=== PATIENT | female | born 1960 | race Caucasian/White ===

== ENCOUNTER 2017-01-20 13:33 | Emergency (ER) | payer MEDICARE, OTHER ==
[2017-01-20 13:53] VITALS: BP 140/53
[2017-01-20] MEDS ORDERED: Ibuprofen TAB* 600 MG PO ONE (14:19)
--- NOTE | 2017-01-20 14:19 | UC ---
Lower Extremity/Ankle HPI - HPI Summary HPI Summary: patient has had a few days of heel pain that is radiating up to the knee - History of Current Complaint Chief Complaint: UCLowerExtremity Stated Complaint: RIGHT FOOT PAIN Time Seen by Provider: 01/20/17 14:11 Hx Obtained From: Patient Hx Last Menstrual Period: 02/12/14 ?: No Onset/Duration: Sudden Onset, Lasting Days Severity Initially: Moderate Severity Currently: Severe Aggravating Factor(s): Standing, Ambulation Alleviating Factor(s): Rest Able to Bear Weight: Yes - Allergies/Home Medications Allergies/Adverse Reactions: Allergies Allergy/AdvReac Type Severity Reaction Status Date / Time No Known Allergies Allergy Verified 01/20/17 13:53 Home Medications: Home Medications Citalopram TAB* [CeleXA TAB*] 20 mg PO DAILY 01/20/17 [History Confirmed ] PMH/Surg Hx/FS Hx/Imm Hx Previously Healthy: Yes Other History Of: Negative For: HIV, Hepatitis B, Hepatitis C - Surgical History Surgical History: Yes Surgery Procedure, Year, and Place: APPENDECTOMY - Family History Known Family History: Positive: None Negative: Cardiac Disease, Hypertension, Diabetes - Social History Alcohol Use: None Substance Use Type: None Smoking Status (MU): Former Smoker Type: Cigarettes When Did the Patient Quit Smoking/Using Tobacco: 3 years Household Exposure Type: Cigarettes - Immunization History Most Recent Influenza Vaccination: 02/2013 Review of Systems Constitutional: Negative Skin: Negative Eyes: Negative ENT: Negative Respiratory: Negative Cardiovascular: Negative Gastrointestinal: Negative Genitourinary: Negative Motor: Negative Neurovascular: Negative Musculoskeletal: Arthralgia, Edema, Myalgia Neurological: Negative Psychological: Negative All Other Systems Reviewed And Are Negative: Yes Physical Exam Triage Information Reviewed: Yes Appearance: Well-Appearing, Well-Nourished, Pain Distress Vital Signs: Initial Vital Signs Temp 98.0 F 01/20/17 13:48 Pulse 98 01/20/17 13:48 Resp 14 01/20/17 13:48 BP 140/53 01/20/17 13:48 Pulse Ox 98 01/20/17 13:48 Vital Signs Reviewed: Yes Eyes: Positive: Conjunctiva Clear ENT Exam: Normal ENT: Positive: Hearing grossly normal, Pharynx normal, TMs normal Dental Exam: Normal Neck exam: Normal Neck: Positive: Supple, Nontender, No Lymphadenopathy Respiratory Exam: Normal Respiratory: Positive: Chest non-tender, Lungs clear, Normal breath sounds Cardiovascular Exam: Normal Cardiovascular: Positive: RRR, No Murmur, Pulses Normal Abdominal Exam: Normal Abdomen Description: Positive: Nontender, No Organomegaly, Soft Bowel Sounds: Positive: Present Musculoskeletal: Positive: Strength Limited @ - when bearing weight, ROM Limited @ - in extreme dorsi flexeion, Edema @ - small pocket of edema on the posterolateral side of the lateral maleolus Neurological Exam: Normal Psychological Exam: Normal Lower Extremity Course/Dx - Course Course Of Treatment: hx obtained, exam performed ,meds reviewed, xray obtained, Ibuprofen given - Differential Dx/Diagnosis Differential Diagnosis/HQI/PQRI: Contusion, Dislocation, Fracture (Closed), Sprain, Strain, Other - heel spur Provider Diagnoses: heel spurs Discharge - Discharge Plan Condition: Stable Disposition: HOME Patient Education Materials: Heel Spur (ED) Referrals: Jolly Johnson PA [Primary Care Provider] - Israel Esteves DPM [Doctor of Podiatric Medicine] - Additional Instructions: 1. I recommend getting some orthotic insoles. 2. Follow up with the cdl program coordinator for proper treatement of the spurs.
--- NOTE | 2017-01-20 14:58 | RAD ---
HISTORY: Heel pain COMPARISONS: February 16, 2014 VIEWS: 4, lateral, axial, and bilateral oblique views of the calcaneus FINDINGS: BONE DENSITY: Normal. BONES: There is no displaced fracture. There are plantar calcaneal enthesophytes. JOINTS: There is no arthropathy. ALIGNMENT: There is no dislocation. SOFT TISSUES: Unremarkable. OTHER FINDINGS: None. IMPRESSION: HEEL SPURS. NO ACUTE OSSEOUS INJURY. IF SYMPTOMS PERSIST, RECOMMEND REPEAT IMAGING.
== END 2017-01-20 15:08 | disposition home or self-care (01) ==
LOC: UCCORT 13:33
DX: M77.51 Other enthesopathy of right foot and ankle (principal)
CPT/HCPCS: 99212; A9270-GY; G0463

== ENCOUNTER 2017-08-31 13:44 | Emergency (ER) | payer MEDICARE, OTHER ==
[2017-08-31 14:52] VITALS: BP 136/73
--- NOTE | 2017-08-31 15:02 | UC ---
Lower Extremity/Ankle HPI - HPI Summary HPI Summary: pt is c/o pain behind her L knee into the back of her thigh and into her calf. she notes some swelling to the back of that knee for a a period of time that she has assumed to be a "Bakers cyst"; however, the rest of the swelling is new along with the pain. the new complaints began after a prolonged walk about 1 week ago. no hx injury. denies hx of immobilization and hx dvt. denies cp/sob. does have hx of remote twist and fall causing pain in that knee but both resolved prior to this. - History of Current Complaint Chief Complaint: UCLowerExtremity Stated Complaint: LEFT KNEE Time Seen by Provider: 08/31/17 14:51 Hx Obtained From: Patient Hx Last Menstrual Period: 02/12/14 ?: No Onset/Duration: Gradual Onset Pain Intensity: 7 Aggravating Factor(s): Nothing Alleviating Factor(s): Nothing Able to Bear Weight: Yes - Risk Factors DVT Risk Factors: Smoking Septic Arthritis Risk Factor: Negative - Allergies/Home Medications Allergies/Adverse Reactions: Allergies Allergy/AdvReac Type Severity Reaction Status Date / Time No Known Allergies Allergy Verified 08/31/17 14:52 Home Medications: Home Medications Acetaminophen [Tylenol Extra Strength] 500 mg PO Q6H PRN 08/31/17 [History Confirmed 08/31/17] PMH/Surg Hx/FS Hx/Imm Hx - Additional Past Medical History Additional PMH: fibromyalgia Cardiovascular History: Hypertension Psychological History: Depression Other History Of: Negative For: HIV, Hepatitis B, Hepatitis C - Surgical History Surgical History: Yes Surgery Procedure, Year, and Place: APPENDECTOMY - Family History Known Family History: Positive: None Negative: Cardiac Disease, Hypertension, Diabetes - Social History Lives: With Family Alcohol Use: Rare Substance Use Type: None Smoking Status (MU): Current Every Day Smoker Type: Cigarettes Amount Used/How Often: 2-3 CIGS PER DAY Length of Time of Smoking/Using Tobacco: 6 MOS When Did the Patient Quit Smoking/Using Tobacco: 3 years Household Exposure Type: Cigarettes - Immunization History Most Recent Influenza Vaccination: 02/2013 Vaccination Up to Date: Yes Review of Systems Constitutional: Negative Skin: Negative Eyes: Negative ENT: Negative Respiratory: Negative Cardiovascular: Negative Gastrointestinal: Negative Genitourinary: Negative Motor: Negative Neurovascular: Negative Musculoskeletal: Calf Tenderness - LLE, Edema - LLE Neurological: Negative Psychological: Negative Is Patient Immunocompromised?: No All Other Systems Reviewed And Are Negative: Yes Physical Exam Triage Information Reviewed: Yes Appearance: Well-Appearing Vital Signs: Initial Vital Signs Temp 98.6 F 08/31/17 14:42 Pulse 87 08/31/17 14:42 Resp 16 08/31/17 14:42 BP 136/73 08/31/17 14:42 Pulse Ox 97 08/31/17 14:42 Vital Signs Reviewed: Yes Eyes: Positive: Conjunctiva Clear ENT: Positive: Normal ENT inspection Neck: Positive: Supple, Nontender, No Lymphadenopathy Respiratory: Positive: Lungs clear, Normal breath sounds Cardiovascular: Positive: RRR, No Murmur Abdomen Description: Positive: Nontender, No Organomegaly, Soft Bowel Sounds: Positive: Present Musculoskeletal: Positive: Other: - LLE: diffuse mild swelling compared to R. + homans sign. there is swelling over the popliteal fossa as well. LLE has full s/ v/m function. Neurological: Positive: Alert Psychological: Positive: Age Appropriate Behavior Skin Exam: Normal Lower Extremity Course/Dx - Course Course Of Treatment: no concern for fx or infection. swelling over the popliteal fossa is c/w a Bakers cyst. no hx to suggest a ruptured Bakers cyst. the calf pain and leg swelling is concerning for DVT. pt agrees to Er transfer to r/o DVT. she will drive herself to [facility] ER. Report given to Memrise isak at [facility] ER. advised possible DVT. - Differential Dx/Diagnosis Provider Diagnoses: acute swelling/pain left leg. Bakers cyst. R/O DVT Discharge - Sign-Out/Discharge Documenting (check all that apply): Discharge - Discharge Plan Condition: Stable Disposition: [facility] Referrals: Jolly Johnson PA [Primary Care Provider] - Additional Instructions: GO DIRECTLY TO THE ER DISCUSSED. - Billing Disposition and Condition Condition: STABLE Disposition: [facility]
== END 2017-08-31 15:15 | disposition short-term general hospital (02) ==
LOC: UCCORT 13:44
DX: M25.562 Pain in left knee (principal); M71.22 Synovial cyst of popliteal space [Baker], left knee; M79.89 Other specified soft tissue disorders
CPT/HCPCS: 99211; G0463

== ENCOUNTER 2018-04-04 11:08 | Emergency (ER) | payer MEDICAID, OTHER ==
--- NOTE | 2018-04-04 12:04 | UC ---
Lower Extremity/Ankle HPI - HPI Summary HPI Summary: 57 yo female presents with right ankle pain. She tells me that yesterday she hopped out of bed and landed with her ankle slightly inverted. Since that time she has had pain in the lateral ankle. She is ambulatory without assistance. She has a hx of fibromyalgia and says she gets long lasting pains. Denies numbness or tingling. - History of Current Complaint Stated Complaint: RIGHT ANKLE COMPLAINT Time Seen by Provider: 04/04/18 12:03 Hx Obtained From: Patient Hx Last Menstrual Period: 02/12/14 Onset/Duration: Sudden Onset Severity Initially: Moderate Severity Currently: Moderate Pain Intensity: 5 Pain Scale Used: 0-10 Numeric Aggravating Factor(s): Standing, Ambulation Alleviating Factor(s): Rest Able to Bear Weight: Yes - Allergies/Home Medications Allergies/Adverse Reactions: Allergies Allergy/AdvReac Type Severity Reaction Status Date / Time No Known Allergies Allergy Verified 04/04/18 12:01 PMH/Surg Hx/FS Hx/Imm Hx Cardiovascular History: Hypertension Psychological History: Anxiety, Depression Other History Of: Negative For: HIV, Hepatitis B, Hepatitis C - Surgical History Surgical History: Yes Surgery Procedure, Year, and Place: APPENDECTOMY - Family History Known Family History: Positive: None Negative: Cardiac Disease, Hypertension, Diabetes - Social History Occupation: Employed Full-time Lives: With Family Alcohol Use: Rare Substance Use Type: None Smoking Status (MU): Current Every Day Smoker Type: Cigarettes Amount Used/How Often: 2-3 CIGS PER DAY Length of Time of Smoking/Using Tobacco: 6 MOS When Did the Patient Quit Smoking/Using Tobacco: 3 years Household Exposure Type: Cigarettes - Immunization History Most Recent Influenza Vaccination: 02/2013 Vaccination Up to Date: Yes Review of Systems All Other Systems Reviewed And Are Negative: Yes Constitutional: Positive: Negative Skin: Positive: Negative Neurovascular: Positive: Negative Musculoskeletal: Positive: Other: - Right ankle pain Neurological: Positive: Negative Psychological: Positive: Negative Physical Exam - Summary Physical Exam Summary: GENERAL: NAD. WDWN. No pain distress. SKIN: No rashes, sores, lesions, or open wounds. CHEST: No accessory muscle use. Breathing comfortably and in no distress. CV: Pulses intact PT and DP. Cap refill <2seconds MSK: RIGHT ANKLE: Mild TTP over ATFL. FROM. Strength 5/5. No edema or obvious bony deformities. Negative talar tilt. No increased laxity. NEURO: Alert. Sensations intact and symmetric B/L LEs PSYCH: Age appropriate behavior. Triage Information Reviewed: Yes Vital Signs: Vital Signs: Temp Pulse Resp BP Pulse Ox 98.4 F 79 16 149/60 98 04/04/18 12:02 04/04/18 12:02 04/04/18 12:02 04/04/18 12:02 04/04/18 12:02 Vital Signs Reviewed: Yes Lower Extremity Course/Dx - Course Course Of Treatment: XR: IMPRESSION: NO ACUTE OSSEOUS INJURY. IF SYMPTOMS PERSIST, RECOMMEND REPEAT IMAGING. Suspect ankle sprain. Advised to RICE and will try her with gel ankle splint. F/u with Orthopedics if symptoms persist. - Differential Dx/Diagnosis Provider Diagnoses: Right ankle sprain Discharge - Sign-Out/Discharge Documenting (check all that apply): Patient Departure All imaging exams completed and their final reports reviewed: Yes - Discharge Plan Condition: Stable Disposition: HOME Patient Education Materials: Ankle Sprain (ED) Referrals: Jolly Johnson PA [Primary Care Provider] - Andres Barrett MD [Medical Doctor] - If Needed Additional Instructions: If you develop a fever, shortness of breath, chest pain, new or worsening symptoms - please call your PCP or go to the ED. Your blood pressure was high at todays visit. Please see your primary provider within 4 weeks for recheck and re-evaluation. 1) Rest, Ice, and elevate your ankle as much as possible 2) Use the gel splint for added support and protection 3) If your symptoms worsen or persist - please call Orthopedics at the number below to schedule a follow up appointment - Billing Disposition and Condition Condition: STABLE Disposition: Home - Attestation Statements Provider Attestation: I was available for consult. This patient was seen by the AJAY. The patient was not presented to, seen by, or examined by me. -Kathy
[2018-04-04 12:11] VITALS: BP 149/60
--- NOTE | 2018-04-05 12:12 | UC ---
- Progress Note Progress Note: final read for ankle xray is negative for fracture, no further action required Discharge - Sign-Out/Discharge Documenting (check all that apply): Post-Discharge Follow Up All imaging exams completed and their final reports reviewed: Yes - Discharge Plan Condition: Stable Disposition: HOME Patient Education Materials: Ankle Sprain (ED) Referrals: Andres Barrett MD [Medical Doctor] - If Needed Jolly Johnson PA [Primary Care Provider] - Additional Instructions: If you develop a fever, shortness of breath, chest pain, new or worsening symptoms - please call your PCP or go to the ED. Your blood pressure was high at todays visit. Please see your primary provider within 4 weeks for recheck and re-evaluation. 1) Rest, Ice, and elevate your ankle as much as possible 2) Use the gel splint for added support and protection 3) If your symptoms worsen or persist - please call Orthopedics at the number below to schedule a follow up appointment - Billing Disposition and Condition Condition: STABLE Disposition: Home
== END 2018-04-04 13:09 | disposition home or self-care (01) ==
LOC: UCCORT 11:08
DX: S93.401A Sprain of unspecified ligament of right ankle, initial encounter (principal); I10 Essential (primary) hypertension; F17.210 Nicotine dependence, cigarettes, uncomplicated; M79.7 Fibromyalgia; W06.XXXA Fall from bed, initial encounter; Y92.9 Unspecified place or not applicable
CPT/HCPCS: 99212; G0463

== ENCOUNTER 2018-10-30 11:00 | Emergency (ER) | payer MEDICAID, OTHER ==
[2018-10-30 11:31] VITALS: BP 145/63
--- NOTE | 2018-10-30 13:07 | UC ---
Hand/Wrist HPI - HPI Summary HPI Summary: 58 y/o female presents to the urgent care c/o Pt fell on right wrist 3 days ago. Pain is along lateral right wrist and shoots up to elbow. She is able to flex wrist but it is very painful to do so. She beleives the wrist is fractured. Pt has been taking ibuprofen, it helps for a little bit. Skin intact, no bruising noted, a little bit of swelling at the wrist. - History Of Current Complaint Chief Complaint: UCUpperExtremity Stated Complaint: RIGHT WRIST INJURY Time Seen by Provider: 10/30/18 12:51 Hx Obtained From: Patient Hx Last Menstrual Period: 02/12/14 Pain Intensity: 5 - Allergies/Home Medications Allergies/Adverse Reactions: Allergies Allergy/AdvReac Type Severity Reaction Status Date / Time No Known Allergies Allergy Verified 10/30/18 11:31 PMH/Surg Hx/FS Hx/Imm Hx Other History Of: Negative For: HIV, Hepatitis B, Hepatitis C - Surgical History Surgical History: Yes Surgery Procedure, Year, and Place: APPENDECTOMY - Family History Known Family History: Positive: None Negative: Cardiac Disease, Hypertension, Diabetes - Social History Alcohol Use: Rare Substance Use Type: None Smoking Status (MU): Former Smoker Type: Cigarettes Amount Used/How Often: 2-3 CIGS PER DAY Length of Time of Smoking/Using Tobacco: 6 MOS When Did the Patient Quit Smoking/Using Tobacco: 5 days Household Exposure Type: Cigarettes - Immunization History Most Recent Influenza Vaccination: 02/2013 Vaccination Up to Date: Yes Physical Exam Vital Signs: Initial Vital Signs Temp 98.5 F 10/30/18 11:24 Pulse 80 10/30/18 11:24 Resp 18 10/30/18 11:24 BP 145/63 10/30/18 11:24 Pulse Ox 100 10/30/18 11:24 Hand/Wrist Course/Dx - Differential Dx/Diagnosis Differential Diagnosis/HQI/PQRI: Contusion, Fracture, Sprain, Strain, Tendonitis Provider Diagnosis: Right wrist pain, Right wrist sprain, Uncontrolled hypertension Discharge - Sign-Out/Discharge Documenting (check all that apply): Patient Departure - D/c home All imaging exams completed and their final reports reviewed: Yes - Discharge Plan Condition: Stable Disposition: HOME Patient Education Materials: Wrist Sprain (ED) Referrals: Johnson,J Zaire, PA [Primary Care Provider] - 1 Week Marson,Andres, MD [Medical Doctor] - 1 Week Additional Instructions: 1-Please take Ibuprofen PO q6-8hrs prn after meals as directed to alleviate pain and swelling. 2-Please apply ice, keep your wrist immobilized with the splint. Avoid heavy lifting or strenuous exercise 3- Please f/u with Orthopedic Dr Barrett or your PCP in 1 week is not improvement of symptoms for further evaluation and treatment. 4- Your BP is elevated today. please decrease salt in your diet, monitor BP and if it continues to be elevated please f/u with your PCP for further management. - Billing Disposition and Condition Condition: STABLE Disposition: Home
== END 2018-10-30 13:17 | disposition home or self-care (01) ==
LOC: UCCORT 11:00
DX: S63.501A Unspecified sprain of right wrist, initial encounter (principal); W19.XXXA Unspecified fall, initial encounter; Y92.9 Unspecified place or not applicable; I10 Essential (primary) hypertension; Z87.891 Personal history of nicotine dependence
CPT/HCPCS: 99213; G0463

== ENCOUNTER 2019-02-06 09:57 | Emergency (ER) | payer OTHER ==
[2019-02-06 10:27] VITALS: BP 145/90
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
== END 2019-02-06 11:42 | disposition home or self-care (01) ==
LOC: UCCORT 09:57
DX: M50.323 Other cervical disc degeneration at C6-C7 level (principal); M51.34 Other intervertebral disc degeneration, thoracic region; M41.9 Scoliosis, unspecified; I10 Essential (primary) hypertension; Z87.891 Personal history of nicotine dependence
CPT/HCPCS: 71046; 72070; 72125; 99212; G0463